=== PATIENT | female | born 1955 | race Asian ===

== ENCOUNTER 2021-12-16 15:47 | Emergency (ER) | payer OTHER ==
[~2021-12-16] VITALS: Ht 167.6 cm; Wt 78.0 kg
[2021-12-16] MEDS ORDERED: ACETAMINOPHEN 500MG TABLET PO ONE (16:15)
[2021-12-16] MEDS ORDERED: ACET-2708 MT (16:18)
[2021-12-16 16:59] VITALS: BP 137/86
== END 2021-12-16 17:01 | disposition home or self-care (01) ==
LOC: ER 15:47
DX: S09.8XXA Other specified injuries of head, initial encounter (principal); E11.9 Type 2 diabetes mellitus without complications; I10 Essential (primary) hypertension; E78.00 Pure hypercholesterolemia, unspecified; W22.09XA Striking against other stationary object, initial encounter; Y93.89 Activity, other specified; Y92.89 Other specified places as the place of occurrence of the external cause
CPT/HCPCS: 99282

== ENCOUNTER 2021-12-20 18:11 | Emergency (ER) | payer OTHER ==
[~2021-12-20] VITALS: Ht 167.6 cm; Wt 79.0 kg
[~2021-12-20 18:11] MED LIST: ACET-2708 MT
[2021-12-20 19:08] VITALS: BP 135/65
== END 2021-12-20 19:09 | disposition home or self-care (01) ==
LOC: ER 18:11
DX: S09.8XXA Other specified injuries of head, initial encounter (principal); S00.83XA Contusion of other part of head, initial encounter; I10 Essential (primary) hypertension; E78.00 Pure hypercholesterolemia, unspecified; E11.9 Type 2 diabetes mellitus without complications; X58.XXXA Exposure to other specified factors, initial encounter; Y93.9 Activity, unspecified; Y92.9 Unspecified place or not applicable
CPT/HCPCS: 99281